=== PATIENT | female | born 2000 | race Caucasian/White ===

== ENCOUNTER 2018-11-28 02:51 | Emergency (ER) | payer OTHER ==
[~2018-11-28] VITALS: Ht 167.6 cm; Wt 119.6 kg
[2018-11-28 02:52] VITALS: Ht 167.6 cm; Wt 119.6 kg
[2018-11-28] MEDS ORDERED: ONDANSETRON 4 MG INJ IV STA (03:39)
[2018-11-28] MEDS ORDERED: DICYCLOMINE 10 MG CAP PO ONE (04:00)
[2018-11-28] MEDS ORDERED: SOD CHLORIDE 0.9% 1,000 ML IV ONE (04:00)
[2018-11-28] MEDS ORDERED: DICY10CA40 PO (05:10)
[2018-11-28] MEDS ORDERED: ONDA4TAB14 PO (05:10)
--- NOTE | 2018-11-28 05:29 | ERD ---
ER Documentation Chief Complaint Chief Complaint ABD PAIN WITH N/V/D X4DAYS; ALREADY ON ATBs HPI Patient is a 18-year-old female who presents to the ER for concerns of abdominal pain for the last week. Patient describes her pain to be diffuse. Patient states she is also had diarrhea. Patient approximate one episode of nonbloody, mucousy diarrhea per day. Patient states she did see her family physician and she was given antibiotics however she does not know which antibiotics it is. Patient denies any vomiting. Patient denies any fevers or chills. No recent travel. No sick contacts. ROS All systems reviewed and are negative except as per history of present illness. Medications Home Meds Active Scripts Ondansetron (Ondansetron Odt) 4 Mg Tab.rapdis, 4 MG PO Q6H PRN for NAUSEA AND/OR VOMITING, #10 TAB Prov:EDILIA INMAN PA-C 11/28/18 Dicyclomine HCl (Dicyclomine HCl) 10 Mg Capsule, 10 MG PO TID PRN for ABDOMINAL CRAMPING, #20 CAP Prov:EDILIA INMAN PA-C 11/28/18 PMhx/Soc Medical and Surgical Hx: pt denies Medical Hx, pt denies Surgical Hx Hx Alcohol Use: No Hx Substance Use: No Hx Tobacco Use: No FmHx Family History: No diabetes Physical Exam Vitals Vital Signs Date Temp Pulse Resp B/P (MAP) Pulse Ox O2 O2 Flow FiO2 Time Delivery Rate 11/28/18 98.0 95 19 140/90 97 02:52 (107) Physical Exam GENERAL: Well-developed, well-nourished female. Appears in no acute distress. Speaking in full sentences HEAD: Normocephalic, atraumatic. EYES: Pupils are equally reactive bilaterally. EOMs grossly intact. No conjunctival erythema. ENT: Moist mucous membranes. No uvula deviation. No kissing tonsils. NECK: Supple. No meningismus. Normal range of motion of the neck. LUNG: Clear to auscultation bilaterally. No rhonchi, wheezing, rales or coarse breath sounds. HEART: Regular rate and rhythm. No murmurs, rubs or gallops. ABDOMEN: Diffuse tenderness noted throughout the abdomen. Positive bowel sounds in all four quadrants. No rebound tenderness, no guarding. (-) McBurney's point tenderness. No CVA tenderness. BACK: No midline tenderness. EXTREMITIES: Equal pulses bilaterally. No peripheral clubbing, cyanosis or edema. No unilateral leg swelling. NEUROLOGIC: Alert and oriented. Moving all four extremities without any difficul ty. Normal speech. Steady gait. SKIN: Normal color. Warm and dry. No rashes or lesions. Result Diagram: 11/28/18 0353 11/28/18 0353 Results 24 hrs Laboratory Tests Test 11/28/18 03:53 White Blood Count 8.0 10^3/ul Red Blood Count 4.64 10^6/ul Hemoglobin 13.1 g/dl Hematocrit 40.9 % Mean Corpuscular Volume 88.1 fl Mean Corpuscular Hemoglobin 28.2 pg Mean Corpuscular Hemoglobin Concent 32.0 g/dl Red Cell Distribution Width 14.0 % Platelet Count 273 10^3/UL Mean Platelet Volume 10.8 fl Immature Granulocytes % 0.900 % Neutrophils % 67.5 % Lymphocytes % 24.2 % Monocytes % 5.8 % Eosinophils % 1.0 % Basophils % 0.6 % Nucleated Red Blood Cells % 0.0 /100WBC Immature Granulocytes # 0.070 10^3/ul Neutrophils # 5.4 10^3/ul Lymphocytes # 1.9 10^3/ul Monocytes # 0.5 10^3/ul Eosinophils # 0.1 10^3/ul Basophils # 0.1 10^3/ul Nucleated Red Blood Cells # 0.0 10^3/ul Urine Color YELLOW Urine Clarity CLEAR Urine pH 5.0 Urine Specific [place] 1.018 Urine Ketones NEGATIVE mg/dL Urine Nitrite NEGATIVE mg/dL Urine Bilirubin NEGATIVE mg/dL Urine Urobilinogen NEGATIVE mg/dL Urine Leukocyte Esterase 1+ Mark/ul Urine Microscopic RBC 1 /HPF Urine Microscopic WBC 13 /HPF Urine Squamous Epithelial Cells FEW /HPF Urine Bacteria FEW /HPF Urine Hemoglobin 1+ mg/dL Urine Glucose NEGATIVE mg/dL Urine Total Protein NEGATIVE mg/dl Urine Test NEGATIVE Sodium Level 140 mmol/L Potassium Level 4.3 mmol/L Chloride Level 101 mmol/L Carbon Dioxide Level 27 mmol/L Anion Gap 12 Blood Urea Nitrogen 16 mg/dl Creatinine 0.78 mg/dl Est Glomerular Filtrat Rate mL/min > 60 mL/min Glucose Level 97 mg/dl Calcium Level 9.9 mg/dl Total Bilirubin 0.1 mg/dl Direct Bilirubin 0.00 mg/dl Indirect Bilirubin 0.1 mg/dl Aspartate Amino Transf (AST/SGOT) 74 IU/L Alanine Aminotransferase (ALT/SGPT) 216 IU/L Alkaline Phosphatase 66 IU/L Total Protein 8.1 g/dl Albumin 4.4 g/dl Globulin 3.70 g/dl Albumin/Globulin Ratio 1.18 Lipase 293 U/L Current Medications Medications Dose Sig/Rodriguez Start Time Status Last (Trade) Ordered Route PRN Stop Time Admin Dose Reason Admin Ondansetron 4 mg ONCE STAT 11/28/18 DC 11/28/18 HCl (Zofran IV 03:39 04:03 Inj) 11/28/18 03:40 Dicyclomine 10 mg ONCE ONCE 11/28/18 DC 11/28/18 HCl PO 04:00 04:03 (Bentyl) 11/28/18 04:01 Sodium 1,000 ml @ Q1H ONCE 11/28/18 DC 11/28/18 Chloride 1,000 mls/hr IV 04:00 03:57 11/28/18 04:59 Procedures/MDM ED COURSE: The patient was stable throughout ED course. I kept the patient and/or family informed of laboratory and diagnostic imaging results throughout the ED course. DIAGNOSTIC IMAGING: Read by radiologist. Patient: GEOVANI BOYKIN : 2000 Age: 18 Sex: F MR #: [id number] DOS: 11/28/18 0427 Ordering MD: EDILIA INMAN PA-C Location: [facility] Room/Bed: PROCEDURE: US Abdomen. CLINICAL INDICATION: Epigastric and right upper quadrant abdominal pain TECHNIQUE: Multiple real-time images were acquired of the patient's abdomen and retroperitoneum utilizing a high resolution transducer. COMPARISON: None FINDINGS: The pancreas was not visualized due to overlying bowel gas. No evidence of cholelithiasis gallbladder wall thickening or pericholecystic fluid. Common bile duct normal limits in size maximal transverse diameter 3.2 mm. Liver enlarged measuring 19.48 cm maximal sagittal dimension. Hepatic fatty infiltration without focal hepatic lesions. Right kidney normal in size maximal sagittal mention 12.5 cm. Normal right renal parenchymal echogenicity without hydronephrosis intra renal mass or calculus. Normal portal venous flow. IMPRESSION: 1. Unremarkable gallbladder without biliary ductal dilation. 2. Hepatomegaly with hepatic fatty infiltration. 3. Unremarkable right kidney. 4. Nonvisualization of the pancreas due to overlying bowel gas. RPTAT:AAJJ Physician Gigi Date Time Electronically viewed and signed by Physician Gigi on 11/28/2018 05:06 BM/ CC: EDILIA INMAN PA-C [id number] PROCEDURES: None. MEDICATIONS GIVEN: Ibuprofen Patient tolerated medication well with no adverse reactions. Patient reported improvement in pain. MEDICAL DECISION MAKING: This is a 18-year-old female presents to the ER for concerns of diffuse abdominal pain and diarrhea for the last week. Patient is currently on an unknown antibiotic. Vital signs were reviewed. Patient was afebrile. Patient was not hypoxic. IV line was established. Patient was given IV fluids as well as Bentyl. Patient reported improvement in pain prior to discharge. CBC showed no evidence of systemic infection or severe anemia. CMP showed no evidence of electrolyte abnormalities, severe acidosis, alkalosis, renal failure. AST was noted to be 74, ALT of 216. Lipase showed no evidence of acute pancreatitis. Urine test was negative. UA did show 1+ leukocyte esterase, 1+ blood. Patient denied any dysuria, frequency, urgency or hematuria. Given that patient is asymptomatic, will hold off on treating patient with course of antibiotics to prevent worsening of diarrhea. Urine was sent for culture, results pending. Gallbladder ultrasound 1. Unremarkable gallbladder without biliary ductal dilation. 2. Hepatomegaly with hepatic fatty infiltration. 3. Unremarkable right kidney. 4. Nonvisualization of the pancreas due to overlying bowel gas. At this time, the patient presentation is most consistent with abdominal cramps and diarrhea. Patient was advised to follow-up with her primary care physician on an outpatient basis for stool studies. Unable to rule out bacterial causes of diarrhea at this time. Patient's LFTs were also noted to be elevated. Dietary changes were advised. Differential diagnosis included but was not limited to acute coronary syndrome, AAA, mesenteric ischemia, lower lobe pneumonia, DKA, bowel perforation, cholecystitis, choledocholithiasis, ascending cholangitis, hepatic abscess, pancreatitis, PUD, gastritis, GERD, splenic rupture, diverticulitis, UTI, pyelonephritis, nephrolithiasis, appendicitis, ovarian torsion, PID. Patient was nontoxic, non-ill appearing prior to discharge. PRESCRIPTIONS: Ania Douglas DISCHARGE: At this time, patient is stable for discharge and outpatient management. I have instructed the patient to follow-up with his/her primary care physician in 1-2 days. I have instructed the patient to promptly return to the ER at any time for any new or worsening symptoms including increased pain, nausea, vomiting, diarrhea, fever, weakness or LOC. The patient and/or family expressed understanding of and agreement with this plan. All questions were answered. Home care instructions were provided. Disclaimer: Inadvertent spelling and grammatical errors are likely due to EHR/d ictation software use and do not reflect on the overall quality of patient care. Also, please note that the electronic time recorded on this note does not necessarily reflect the actual time of the patient encounter. Departure Diagnosis: Primary Impression: Diarrhea Diarrhea type: unspecified type Qualified Codes: R19.7 - Diarrhea, unspecified Additional Impressions: Elevated LFTs Abdominal cramps Condition: Fair Patient Instructions: Abdominal Pain, Treating Diarrhea Referrals: [facility] YOU HAVE RECEIVED A MEDICAL SCREENING EXAM AND THE RESULTS INDICATE THAT YOU DO NOT HAVE A CONDITION THAT REQUIRES URGENT TREATMENT IN THE EMERGENCY DEPARTMENT. FURTHER EVALUATION AND TREATMENT OF YOUR CONDITION CAN WAIT UNTIL YOU ARE SEEN IN YOUR DOCTORS OFFICE WITHIN THE NEXT 1-2 DAYS. IT IS YOUR RESPONSIBILITY TO MAKE AN APPOINTMENT FOR FOLOW-UP CARE. IF YOU HAVE A PRIMARY DOCTOR --you should call your primary doctor and schedule an appointment IF YOU DO NOT HAVE A PRIMARY DOCTOR YOU CAN CALL OUR PHYSICIAN REFERRAL HOTLINE AT IF YOU CAN NOT AFFORD TO SEE A PHYSICIAN YOU CAN CHOSE FROM THE FOLLOWING [facility] [address] [facility] [address] [facility] [address] [facility] [address] [facility] [address] [facility]. [facility] [address] [facility]. [facility] YOU HAVE RECEIVED A MEDICAL SCREENING EXAM AND THE RESULTS INDICATE THAT YOU DO NOT HAVE A CONDITION THAT REQUIRES URGENT TREATMENT IN THE EMERGENCY DEPARTMENT. FURTHER EVALUATION AND TREATMENT OF YOUR CONDITION CAN WAIT UNTIL YOU ARE SEEN IN YOUR DOCTORS OFFICE WITHIN THE NEXT 1-2 DAYS. IT IS YOUR RESPONSIBILITY TO MAKE AN APPOINTMENT FOR FOLOW-UP CARE. IF YOU HAVE A PRIMARY DOCTOR --you should call your primary doctor and schedule and appointment IF YOU DO NOT HAVE A PRIMARY DOCTOR YOU CAN CALL OUR PHYSICIAN REFERRAL HOTLINE AT . IF YOU CAN NOT AFFORD TO SEE A PHYSICIAN YOU CAN CHOSE FROM THE FOLLOWING [facility] INSTITUTIONS: [facility] [address] [place] [address] [facility] [address] [place] [address] [facility] [address] [place] [address] Additional Instructions: Stool studies advised on outpatient basis. Call your primary care doctor TOMORROW for an appointment during the next 1-2 days.See the doctor sooner or return here if your condition worsens before your appointment time. EDILIA INMAN PA-C Nov 28, 2018 05:29
[2018-11-28 06:34] VITALS: BP 94/53; PULSE 62; RESP 18
== END 2018-11-28 06:35 | disposition home or self-care (01) ==
LOC: FTE 02:51
DX: R19.7 Diarrhea, unspecified (principal); R10.84 Generalized abdominal pain; R94.5 Abnormal results of liver function studies
CPT/HCPCS: 36415; 76705; 80053; 81001; 83690; 84703; 85025; 87086; 96361; 96374; J2405; J7030; Z7502; Z7610